=== PATIENT | female | born 1990 | race African-American/Black ===

== ENCOUNTER 2018-08-21 18:11 | Emergency (ER) | payer SELFPAY ==
[~2018-08-21] VITALS: Ht 162.6 cm; Wt 66.0 kg
[2018-08-21] MEDS ORDERED: OLANZAPINE 5MG TABLET ODT PO ONE (19:00)
[2018-08-22 07:14] LABS: BASOPHILS % 0.3 % (0.0-2.0); EOSINOPHILS % 3.1 % (0.0-5.0); HEMATOCRIT. 39.3 % (36.0-48.0); HEMOGLOBIN. 12.9 g/dL (12.0-16.0); LYMPHOCYTES % 26.8 % (20.0-50.0); MEAN CORPUSCULAR HEMOGLOBIN 29.6 pg (28.0-32.0); MEAN PLATELET VOLUME 8.3 fl (7.4-10.4); MONOCYTES % 8.6 % (2.0-8.0); NEUTROPHILS % 61.2 % (40.0-76.0); PLATELET 308 x1000/uL (130-400); RED BLOOD CELL COUNT 4.36 mill/uL (4.2-5.4); RED CELL DISTRIBUTION WIDTH 12.8 % (11.6-14.6)
[2018-08-22 07:25] LABS: CHLORIDE 105 mEq/L (98-107); ETHANOL BLOOD < 10 mg/dL
[2018-08-22 07:29] LABS: HCG SCREEN NEGATIVE
[2018-08-22 12:56] VITALS: BP 123/71
== END 2018-08-22 13:30 | disposition home or self-care (01) ==
LOC: ER 18:54
DX: F41.9 Anxiety disorder, unspecified (principal); F32.9 Major depressive disorder, single episode, unspecified
CPT/HCPCS: 36415; 80053; 81025; 84703; 85025; 99284; G0482